=== PATIENT | female | born 1985 | race Caucasian/White ===

== ENCOUNTER 2020-08-04 04:57 | Emergency (ER) | payer OTHER, SELFPAY ==
[2020-08-04 05:10] VITALS: BP 147/113; PULSE 116; RESP 18; TEMP 36.7; O2SAT 98; BMI 31.7
--- NOTE | 2020-08-04 05:16 | CT_ITS ---
Procedure: CT ABDOMEN PELVIS WO CON Referring Doctor: Isael Villasenor Patient Age:35Y CLINICAL INDICATION: abd pain Pain with urination. Burning sensation. History of UTIs and kidney stones. COMPARISON: No exams were available for comparison TECHNIQUE: No oral nor IV contrast utilized as Axial images obtained with sagittal and coronal reformats. All CT scans at the facility use one or more dose reduction, viz: automated exposure control, ma/kV adjustment per patient size (including targeted exams where dose is matched to indication, i.e. head), or iterative reconstruction technique. FINDINGS: Lower thorax: No acute finding lung bases clear . Heart normal size ABDOMEN: Liver: Diffuse fatty infiltration liver. But no focal lesions but upper normal volume of liver overall volume. CBD unremarkable. Gallbladder: Nondistended. No radio opaque stones. Pancreas: No masses or peripancreatic fluid collections. Spleen: unremarkable Adrenals: unremarkable Kidneys/ureters: unremarkable PELVIS: Uterus normal size. Left ovary measuring 3.5 and contains a there is a cyst measuring near 3 which likely extends from the inferior posterior margin of left ovary. Any pelvic symptoms or recurring urinary tract infections I would a suggested pelvic ultrasound to further investigate. Bladder: Small fairly empty. No obvious stones or masses. Appendix: Unremarkable. No distention or periappendiceal phlegmonous change. GI tract : . Stomach unremarkable and fairly empty.. Small bowel: Appears satisfactory of minimal stool-like material at the terminal ileum may reflect incompetent ileocecal valve or some slight diminished bowel peristalsis. No small bowel dilatation or findings otherwise Large bowel. Moderate to generous solid stool at the right and proximal transverse colon. Moderate gas throughout transverse colon as well.. Very the minimal stool at descending colon and rectosigmoid . Peritoneum: No abnormal fluid collections. No obvious inflammatory changes. No free air. Lymph nodes: No enlarged lymph nodes apparent. Vasculature: No evidence of abdominal aortic aneurysm. No retroperitoneal hemorrhage evident. Bones: No acute fracture no lesions IMPRESSION: 1..No acute findings abdomen or pelvis .2.. No urinary obstruction or discrete calculi.. Urinary bladder unremarkable on this nonenhanced scan and fairly empty 3.. Note 3 cm cyst-most likely ovarian cyst extending from the posterior inferior marginal left ovary, and residing to the left of the cervix. If patient has any pelvic symptoms or recurrent pelvic persistent UTIs you may want to consider a pelvic ultrasound follow-up to survey this region 4.. Diffuse fatty changes liver incidentally noted Dictated by: Juan Francisco Larson MD 08/04/2020 09:56 Juan Francisco Larson MD in [place] 08/04/2020 09:56
--- NOTE | 2020-08-04 05:28 | [facility].EDUROGF ---
ED Disposition Clinical Impression: UTI (urinary tract infection) Qualifiers: Urinary tract infection type: site unspecified Hematuria presence: without hematuria Qualified Code(s): N39.0 - Urinary tract infection, site not specified Disposition: Home, Self-Care Condition on Discharge: Good Instructions: DI for Urinary Tract Infection (UTI) Additional Instructions: fluids and see pcp for follow up and culture results Prescriptions: levoFLOXacin [Levaquin 500mg tab] 500 mg PO DAILY #7 tab Transmission Status: Pending to [id number] Referrals: PCP,No [Primary Care Provider] - - Critical Care Critical Care Time: No Attestation: On , the high probability of a clinically significant, sudden or life threatening deterioration of the following system(s) required my full and direct attention, intervention and personal management. The time I documented below is in addition to time spent performing reported procedures but includes the following listed in this critical care notation. Medical Decision Making - Medical Records Medical records reviewed: Yes: I reviewed the patient's medical records. - Darron Inquiry Pt receiving controlled substance: No Vital Signs: 08/04/20 05:10 Temperature 98.1 F Temperature Source Oral Pulse Rate [Right Brachial] 116 H Respiratory Rate 18 Blood Pressure [Right Arm] 147/113 H Blood Pressure Mean [Right Arm] 124 Blood Pressure Source [Right Arm] Automatic Cuff Blood Pressure Position [Right Arm] Sitting 02 Sat by Pulse Oximetry 98 Oxygen Delivery Method Room Air - Lab Data Lab results reviewed: Yes: I reviewed the patient's lab results. Lab Results 08/04/20 05:18: WBC 10.9 H, RBC 5.02, Hgb 14.8, Hct 45.3, MCV 90.2, MCH 29.5, MCHC 32.7, RDW 13.3, Plt Count 425 H, MPV 7.2 L, Neut % (Auto) 53.7, Lymph % (Auto) 38.9, [place] % (Auto) 5.8, Eos % (Auto) 1.0, Baso % (Auto) 0.5, Neut # (Auto) 5.9, Lymph # (Auto) 4.3, [place] # (Auto) 0.6, Eos # (Auto) 0.1, Baso # (Auto) 0.1 08/04/20 05:18: Sodium 140, Potassium 4.2, Chloride 101, Carbon Dioxide 27, Anion Gap 16.2 H, BUN 9, Creatinine 0.80, Estimated Creat Clear 133, Estimated GFR 83, Est GFR ( Amer) 100, Glucose 112 H, Calcium 10.1, Total Bilirubin 0.5, Direct Bilirubin 0.0, Conjugated Bilirubin 0.0, Indirect Bilirubin 0.5, Unconjugated Bilirubin 0.7, AST 67 H, ALT 91 H, Alkaline Phosphatase 89, C-Reactive Protein 2.5, Total Protein 8.2, Albumin 4.9, Amylase 46, Lipase 84 08/04/20 05:18: ESR 19 08/04/20 05:18: Lactate 2.0 08/04/20 05:18: Procalcitonin 0.042 08/04/20 05:30: Urine Color Dk yellow, Urine Appearance Cloudy, Urine pH 6.0, Ur Specific [place] >= 1.030, Urine Protein 2+, Urine Glucose (UA) Negative, Urine Ketones Negative, Urine Blood 3+, Urine Nitrate Positive, Urine Bilirubin Negative, Urine Urobilinogen 0.2, Ur Leukocyte Esterase 1+ A, Urine RBC 50-100, Urine WBC 20-50 08/04/20 05:30: Urine HCG, Qual Negative Result diagrams: 08/04/20 05:18 08/04/20 05:18 Orders (Tests/Meds): ED MEDICATIONS Generic Name Dose Route Start Last Admin Trade Name Freq PRN Reason Stop Dose Admin Sodium Chloride 1,000 mls @ 999 mls/hr 08/04/20 05:30 08/04/20 05:22 Sod Chlor 0.9% 1000ml Bag IV 08/04/20 06:30 999 mls/hr .Q1H1M EDDY Administration Discontinued Medications Generic Name Dose Route Start Last Admin Trade Name Freq PRN Reason Stop Dose Admin Ketorolac Tromethamine 30 mg 08/04/20 05:18 08/04/20 05:57 Ketorolac 30mg/Ml Vial IV 08/04/20 05:19 30 mg ONCE ONE Administration Ondansetron HCl 4 mg 08/04/20 05:18 08/04/20 05:57 Ondansetron 4mg/2ml Vial IV 08/04/20 05:19 4 mg ONCE ONE Administration ORDERS Category Date Time Status CT abdomen pelvis wo con Stat Cat Scan 08/04/20 05:16 Taken Blood Culture Stat Micro 08/04/20 05:18 Received Urine Culture Stat Micro 08/04/20 05:30 Received - CT Data CT Scan: Abdomen, Pelvis Time Received: 06:[address] Reviewed: Yes: I
--- NOTE | 2020-08-04 05:40 | PC.NURSE ---
called to check on patient's labs. was advised per ariana,that they were just getting started.
[2020-08-04 05:44] LABS: Microscopic, Urine URINE MICROSCOPIC (MICROSCOPIC)
[2020-08-04 05:51] LABS: Basophils # 0.1 K/mm3 (0-0.2); Basophils % 0.5 % (0.1-2.0); Eosinophils # 0.1 K/mm3 (0.0-0.4); Hematocrit 45.3 % (37.0-47.0); Hemoglobin 14.8 g/dL (12.2-16.2); Lymphocytes # 4.3 K/mm3 (0.7-4.5); Lymphocytes % 38.9 % (10-50); Mean Corpuscular HGB Conc 32.7 g/dL (31.8-35.4); Mean Corpuscular Hemoglobin 29.5 pg (27.0-31.2); Mean Corpuscular Volume 90.2 fl (81-99); Mean Platelet Volume 7.2 fl (7.4-10.4); Monocytes # 0.6 K/mm3 (0.1-1.0); Monocytes % 5.8 % (1.7-9.3); Neutrophils # 5.9 K/mm3 (1.8-7.8); Neutrophils % 53.7 % (37.0-80.0); Platelet Count 425 K/mm3 (142-424); Red Blood Count 5.02 M/mm3 (4.20-5.40); Red Cell Distribution Width 13.3 % (11.5-17.5); White Blood Count 10.9 K/mm3 (4.8-10.8)
[2020-08-04 05:53] LABS: Urine Pregnancy, HCG Qual. Negative (Negative)
[2020-08-04 05:59] LABS: Alanine Aminotransferase 91 U/L (12-78); Albumin Level 4.9 g/dl (3.5-5.0); Alkaline Phosphatase 89 U/L (38-126); Amylase 46 U/L (30-110); Anion Gap 16.2 mEq/L (5-15); Aspartate Amino Transferase 67 U/L (14-36); Bilirubin,Indirect 0.5 mg/dL (0.0-0.9); Bilirubin,Total 0.5 mg/dl (0.2-1.3); Bilirubin,Unconjugated 0.7 mg/dL (0.0-1.1); Blood Urea Nitrogen 9 mg/dl (7-17); Calcium 10.1 mg/dl (8.4-10.2); Carbon Dioxide 27 mmol/L (22.0-30.0); Chloride 101 mmol/L (98-107); Creatinine Clearance Estimated 133 mL/min (50-200); Estimated Glomerular Filt Rate 83 ml/min (>60); GFR (African American) 100 ML/MIN (>60); Glucose 112 mg/dl (74-100); Lipase 84 U/L (23-300); Potassium 4.2 mmoL/L (3.5-5.1); Sodium 140 mmol/L (136-145); Total Protein,Serum 8.2 g/dl (6.3-8.2)
[2020-08-04 06:06] LABS: C-Reactive Protein 2.5 mg/L (0-4)
[2020-08-04 06:06] LABS: Appearance,Urine CLOUDY (Clear); Blood, Urine 3+ (Negative); Color,Urine DK YELLOW (Yellow); Glucose,Urine (UA) Negative (Negative); Ketones,Urine Negative (Negative); Nitrate,Urine POSITIVE (Negative); Protein,Urine 2+ (Negative); Specific Gravity, Urine >= 1.030 (1.005-1.030); Urobilinogen,Urine 0.2 EU/dl (0.2)
[2020-08-04 06:11] LABS: Bilirubin,Urine Negative (Negative); Leukocyte Esterase,Urine 1+ (Negative)
[2020-08-04 06:12] LABS: RBC,Urine 50-100 #/hpf (0-3); WBC,Urine 20-50 #/hpf (0-3)
[2020-08-04 06:20] LABS: Procalcitonin 0.042 ng/mL (0.0-2.0)
--- NOTE | 2020-08-04 06:22 | PC.NURSE ---
back from ct
[2020-08-04 06:35] LABS: Erythrocyte Sedimentation Rate 19 mm/hr (0-20)
[2020-08-04 07:03] VITALS: BP 116/60; PULSE 73; RESP 16; TEMP 36.7; O2SAT 98
== END 2020-08-04 07:35 | disposition home or self-care (01) ==
PROVIDERS: Emergency Provider Emergency Medicine
DX: N30.00 Acute cystitis without hematuria (principal); B96.20 Unspecified Escherichia coli [E. coli] as the cause of diseases classified elsewhere; Z87.442 Personal history of urinary calculi; E11.9 Type 2 diabetes mellitus without complications; Z79.84 Long term (current) use of oral hypoglycemic drugs
CPT/HCPCS: 74176; 80048; 80076; 81001; 81025; 82150; 83605; 83690; 84145; 85025; 85651; 86140; 87040; 87086; 87088; 87186; 96365; 96375; 99282; J2405